=== PATIENT | male | born 1970 | race Caucasian/White ===

== ENCOUNTER 2018-09-11 12:34 | Emergency (ER) | payer OTHER, SELFPAY ==
[2018-09-11 12:35] VITALS: BP 123/80; PULSE 72; RESP 16; TEMP 36.7; O2SAT 99; BMI 32.3
--- NOTE | 2018-09-11 12:59 | ED.VISSUMM ---
- ER Visit Summary Date of Service: 09/11/18 Chief Complaint: Back pain History of Present Illness: The patient is a 48 M with no primary care physician. He reports he was on a ladder this morning twisted awkwardly and had the abrupt onset of pain in his left side of his lower back. Reports that he continue to work through this and was digging post holes and the pain got much worse. He describes as a sharp pain left side of his lower back is 10 out of 10 in severity. Is worsened by movement and bending. Is relieved by nothing. He is tried heat and cold without any relief. He denies any radiation to his legs. No numbness or weakness of his legs. No problems with his bowels or his bladder. No groin numbness. Patient denies any other trauma. No fall or MVA. Physical Examination: Vitals: Stable. Afebrile. General: A&O x 3. NAD. Cardiovascular exam: Regular rate and rhythm, no murmur, rub or gallop. Respiratory exam: Clear to auscultation bilaterally. No wheezes or stridor. Abdominal exam: Soft, nontender, nondistended, normal bowel sounds. No peritoneal signs. Back: Moderate tenderness palpation to the paraspinous muscular and lumbar region on the left only. No point tenderness. Negative straight leg bilaterally. 5/5 DF, PF, EHL bilaterally. Normal sensation to light touch throughout. Extremity: No clubbing, cyanosis, or edema. Emergency Department Course and Treatment: An [facility] report was obtained which was negative. He was given Toradol, Norflex, and morphine IM. Treatment Plan: Patient will be discharged with naproxen, Percocet, and Flexeril. Instructed to follow-up with Dr. Lam in 3-5 days if not improving. Return to the emergency department for any worsening symptoms. Disposition: To home in improved and stable condition. Impression: 1. Lumbar strain. This note was generated with [employer] dictation software. It may contain incorrect words, spelling, and punctuation that were not noted in review of the chart prior to signing ED Disposition - Plan for ED Patient: Chief Complaint: Back Instructions: ED Spasm Back No Trauma Prescriptions: Oxycodone HCl/Acetaminophen [Percocet 5/325] 1 tablet PO Q6H PRN PRN 5 Days #20 tablet PRN Reason: Pain Naproxen [Naprosyn] 500 mg PO BID #14 tablet Cyclobenzaprine [Flexeril] 10 mg PO TID PRN #20 tablet PRN Reason: Muscle Spasm Referrals: Jorje Lam DO [STAFF PHYSICIAN] - 3-5 Days if not improving
--- NOTE | 2018-09-11 13:03 | ED.DCSUM_ITS ---
- ER Visit Summary Date of Service: 09/11/18 Chief Complaint: Back pain History of Present Illness: The patient is a 48 M with no primary care physician. He reports he was on a ladder this morning twisted awkwardly and had the abrupt onset of pain in his left side of his lower back. Reports that he continue to work through this and was digging post holes and the pain got much worse. He describes as a sharp pain left side of his lower back is 10 out of 10 in severity. Is worsened by movement and bending. Is relieved by nothing. He is tried heat and cold without any relief. He denies any radiation to his legs. No numbness or weakness of his legs. No problems with his bowels or his bladder. No groin numbness. Patient denies any other trauma. No fall or MVA. Physical Examination: Vitals: Stable. Afebrile. General: A&O x 3. NAD. Cardiovascular exam: Regular rate and rhythm, no murmur, rub or gallop. Respiratory exam: Clear to auscultation bilaterally. No wheezes or stridor. Abdominal exam: Soft, nontender, nondistended, normal bowel sounds. No peritoneal signs. Back: Moderate tenderness palpation to the paraspinous muscular and lumbar region on the left only. No point tenderness. Negative straight leg bilaterally. 5/5 DF, PF, EHL bilaterally. Normal sensation to light touch throughout. Extremity: No clubbing, cyanosis, or edema. Emergency Department Course and Treatment: An [facility] report was obtained which w as negative. He was given Toradol, Norflex, and morphine IM. Treatment Plan: Patient will be discharged with naproxen, Percocet, and Flexeril. Instructed to follow-up with Dr. Lam in 3-5 days if not improving. Return to the emergency department for any worsening symptoms. Disposition: To home in improved and stable condition. Impression: 1. Lumbar strain. This note was generated with [employer] dictation software. It may contain incorrect words, spelling, and punctuation that were not noted in review of the chart prior to signing ED Disposition - Plan for ED Patient: Chief Complaint: Back Instructions: ED Spasm Back No Trauma Prescriptions: Oxycodone HCl/Acetaminophen [Percocet 5/325] 1 tablet PO Q6H PRN PRN 5 Days #20 tablet PRN Reason: Pain Naproxen [Naprosyn] 500 mg PO BID #14 tablet Cyclobenzaprine [Flexeril] 10 mg PO TID PRN #20 tablet PRN Reason: Muscle Spasm Referrals: Jorje Lam DO [STAFF PHYSICIAN] - 3-5 Days if not improving
[2018-09-11] MEDS: Ketorolac 60 MG/2 ML Vial IM (13:18)
[2018-09-11] MEDS: Orphenadrine 60 MG/2 ML Ampul IM (13:18)
[2018-09-11] MEDS: morphine 10 MG/ML Syringe IM (13:19)
[2018-09-11 13:59] VITALS: BP 145/78; PULSE 67; RESP 16; O2SAT 100
== END 2018-09-11 14:01 | disposition home or self-care (01) ==
PROVIDERS: Emergency Provider Emergency Medicine
DX: S39.012A Strain of muscle, fascia and tendon of lower back, initial encounter (principal); X50.1XXA Overexertion from prolonged static or awkward postures, initial encounter; Y93.9 Activity, unspecified; Y92.9 Unspecified place or not applicable; Y99.9 Unspecified external cause status; I10 Essential (primary) hypertension; E78.00 Pure hypercholesterolemia, unspecified; I25.10 Atherosclerotic heart disease of native coronary artery without angina pectoris
CPT/HCPCS: 96372; 99282

== ENCOUNTER → 2019-02-15 13:16 | Outpatient (CLI) | payer OTHER, SELFPAY | PROVIDERS: Referring Provider Nurse Practitioner Family; Visit Provider Nurse Practitioner Family | DX: R50.9 Fever, unspecified (principal); R05 Cough; M79.10 Myalgia, unspecified site; J02.9 Acute pharyngitis, unspecified | CPT/HCPCS: 87070; 87804 ==